=== PATIENT | female | born 1955 | race Caucasian/White ===

== ENCOUNTER 2018-07-24 22:25 | Emergency (ER) | payer OTHER, SELFPAY ==
[2018-07-24 22:28] VITALS: BP 149/77; PULSE 81; RESP 16; TEMP 36.6; O2SAT 99; BMI 27.3
--- NOTE | 2018-07-24 22:35 | ED.WOUNDLAC ---
HPI - Wound/Laceration General Chief Complaint: Wound/Laceration Stated Complaint: FALL HIT FACE Time Seen by Provider: 07/24/18 22:35 Source: patient Mode of arrival: ambulatory Limitations: no limitations History of Present Illness HPI narrative: The patient and her are visiting locally. They are camping with family. Tonight the patient tripped over a tent peg. She fell forward. she struck her nose, lacerated her nose. She bled externally, but not from her nose. She has no eye injury visual changes. She had no LOC. She has no mouth, ear or neck injury. She is alert and talking upon arrival in no apparent distress. She believes her tetanus to be up-to-date. Related Data Home Medications Medication Instructions Recorded Confirmed levothyroxine 0.088 mg PO DAILY 07/24/18 07/24/18 Allergies Allergy/AdvReac Type Severity Reaction Status Date / Time No Known Drug Allergies Allergy Verified 07/24/18 22:33 Review of Systems Constitutional Denies lethargy, Denies malaise and Denies weakness Eyes Denies change in vision, Denies eye discharge, Denies irritation and Denies loss of vision ENT Ears, Nose, Mouth, and Throat: Denies change in voice, Denies neck pain, Denies sore throat and Denies throat swelling Musculoskeletal Denies neck pain Neurologic Denies loss of vision and Denies weakness Allergic/Immunologic Denies throat swelling [facility] Medical History Hypothyroidism (Acute) Social History Smoking Status: Never smoker Exam Initial Vital Signs Initial Vital Signs: Vital Signs Temperature 97.9 F 07/24/18 22:28 Pulse Rate 81 07/24/18 22:28 Respiratory Rate 16 07/24/18 22:28 Blood Pressure 149/77 H 07/24/18 22:28 Pulse Oximetry 99 07/24/18 22:28 Const General: cooperative and well developed Nutritional Appearance: well nourished Orientation: alert, awake and oriented x3 HENMT Head: normocephalic Ears: external ears normal and TM's normal bilaterally Nose: No epistaxis and other (2.5 cm vertical laceration to the bridge of her nose. There is no foreign body. There is no obvious fracture within the laceration.) Face and sinus: sinuses nontender and face symmetric Mouth: oral mucosae normal, moist mucous membranes and other (No injuries.) Teeth and gingiva: dentition normal Throat: posterior oropharynx normal Procedures Laceration Repair Laceration 1: Site: other (Nose) Size (cm): 2.5 Description: linear Depth: simple, single layer Local Anesthetic: lidocaine 1% Amount of anesthesia used (mL): 2 Pre-repair: wound explored and irrigated extensively Skin layer closed with: nylon Size (cm): 5-0 Number of sutures: 3 Technique: simple, interrupted and other (There were no complications, the patient tolerated the procedure well.) Course Vital Signs - 8 hr 07/24/18 22:28 Temperature 97.9 F Pulse Rate 81 Respiratory Rate 16 Blood Pressure 149/77 H Pulse Oximetry 99 Discharge Plan Departure Patient Disposition: Home Clinical Impression: Laceration of nose Discharge Date/Time: 07/24/18 23:24 Interventions: ED Discharge Assessment Last Done: 07/24/18 23:24 Instructions: DI for Laceration Repair Activity Restrictions/Additional Instructions: Tylenol or Advil as needed for pain. Keep the wound covered until tomorrow. You may shower/bathe after tonight. Follow up with your doctor in 1 week for suture removal. Return here as needed. Prescriptions: No Action levothyroxine tablet 0.088 mg PO DAILY RF: 0
== END 2018-07-24 23:24 | disposition home or self-care (01) ==
LOC: ED 23:25
PROVIDERS: Emergency Provider Emergency Medicine
DX: S01.21XA Laceration without foreign body of nose, initial encounter (principal); W01.198A Fall on same level from slipping, tripping and stumbling with subsequent striking against other object, initial encounter
CPT/HCPCS: 12011; 99282; 99283